=== PATIENT | female | born 1955 | race Caucasian/White ===

== ENCOUNTER → 2016-05-23 | Outpatient (CLI) | payer OTHER ==
--- NOTE | 2016-05-31 10:45 | MM ---
Reason for exam: screening (asymptomatic). Last mammogram was performed 5 years ago. History: Patient is postmenopausal. Physical Findings: A clinical breast exam by your physician is recommended on an annual basis and results should be correlated with mammographic findings. MG Screening Mammo w CAD Bilateral CC and MLO view(s) were taken. Prior study comparison: June 01, 2011, mammogram, performed at [place]. April 05, 2010, mammogram, performed at [place]. The breast tissue is extremely dense which could obscure a lesion on mammography. No significant changes when compared with prior studies. ASSESSMENT: Benign, BI-RAD 2 RECOMMENDATION: Routine screening mammogram of both breasts in 1 year.
== END ==
LOC: RADMAMWWP 13:15
PROVIDERS: ATTEND Family Medicine
DX: Z12.31 Encounter for screening mammogram for malignant neoplasm of breast (principal)

== ENCOUNTER → 2018-07-25 | Outpatient (CLI) | payer BC ==
--- NOTE | 2018-07-26 11:59 | MM ---
Reason for exam: screening (asymptomatic). Last mammogram was performed 2 years and 2 months ago. History: Patient is postmenopausal. Physical Findings: A clinical breast exam by your physician is recommended on an annual basis and results should be correlated with mammographic findings. MG Screening Mammo w CAD Bilateral CC and MLO view(s) were taken. Prior study comparison: May 23, 2016, bilateral MG screening mammo w CAD. June 01, 2011, mammogram, performed at [facility]. The breast tissue is extremely dense which could obscure a lesion on mammography. There is no discrete abnormality. No significant changes when compared with prior studies. ASSESSMENT: Negative, BI-RAD 1 RECOMMENDATION: Routine screening mammogram of both breasts in 1 year.
== END ==
LOC: RADMAMWWP 14:17
PROVIDERS: ATTEND Family Medicine
DX: Z12.31 Encounter for screening mammogram for malignant neoplasm of breast (principal)
CPT/HCPCS: 77067

== ENCOUNTER → 2021-06-07 | Outpatient (CLI) | payer MEDICAID ==
--- NOTE | 2021-06-09 13:20 | MM ---
Reason for exam: screening (asymptomatic). Last mammogram was performed 2 years and 10 months ago. History: Patient is postmenopausal. Physical Findings: A clinical breast exam by your physician is recommended on an annual basis and results should be correlated with mammographic findings. MG Screening Mammo w CAD Bilateral CC and MLO view(s) were taken. Prior study comparison: July 25, 2018, bilateral MG screening mammo w CAD. May 23, 2016, bilateral MG screening mammo w CAD. The breast tissue is extremely dense which could obscure a lesion on mammography. No significant changes when compared with prior studies. ASSESSMENT: Benign, BI-RAD 2 RECOMMENDATION: Routine screening mammogram of both breasts in 1 year.
== END | disposition home or self-care (01) ==
LOC: RADMAMWWP 13:06
PROVIDERS: ATTEND Family Medicine
DX: Z12.31 Encounter for screening mammogram for malignant neoplasm of breast (principal); Z78.0 Asymptomatic menopausal state
CPT/HCPCS: 77067

== ENCOUNTER → 2022-06-08 | Outpatient (CLI) | payer OTHER ==
--- NOTE | 2022-06-08 14:20 | BD ---
EXAMINATION TYPE: Axial Bone Density DATE OF EXAM: 06/08/2022 CLINICAL HISTORY: 66 years old Female. ICD-10 CODE: Z78.0 POST MENOPAUSAL WITHOUT HRT Height: 65 Weight: 122 FRAX RISK QUESTIONS: Family History (Parent hip fracture): yes, but not aware of any fxs Current Tobacco Use: yes RISK FACTORS HISTORY OF: Family History of Osteoporosis: yes, grandmother with symptoms Postmenopausal woman: yes, at age 50 yrs old Hyperparathyroidism: no Adrenal Insufficiency: no MEDICATIONS: Additional Medications: bp meds, statin for cholesterol, Lexapro, vit d, Additional History: hypertension, cholesterol, anxiety EXAM MEASUREMENTS: Bone mineral densitometry was performed using the [employer]. Bone mineral density as measured about the Lumbar spine is: ----- L1-L4(G/cm2): 1.080 T Score Values are as follows: ----- L1: -0.4 ----- L2: -0.4 ----- L3: -0.5 ----- L4: -1.8 ----- L1-L4: -0.8 Z Score Values are as follows: ----- L1: 1.4 ----- L2: 1.4 ----- L3: 1.3 ----- L4: 0.1 ----- L1-L4: 1.1 Bone mineral density first bone density....baseline Bone mineral density about the R hip (g/cm2): 0.762 Bone mineral density about the L hip (g/cm2): 0.760 T Score values are as follows: -----R Neck: -2.2 -----L Neck: -2.4 -----R Total: -1.9 -----L Total: -2.0 Z Score values are as follows: -----R Neck: -0.6 -----L Neck: -0.7 -----R Total: -0.5 -----L Total: -0.6 Bone mineral density baseline study FRAX%s: The graph provided illustrates a 12.6% chance for a major osteoporotic fx and a 4.0% chance f or the hips probability for fx in 10 years time. IMPRESSION: Osteopenia (T Score between -2.5 and -1). There is slightly increased risk of fracture and the patient may be considered for treatment. Re-Screen 2-5 years. NOTE: T-SCORE=SD OF THE YOUNG ADULT MEAN.
--- NOTE | 2022-06-09 07:50 | MM ---
Reason for Exam: Screening (asymptomatic). Last screening mammogram was performed 12 month(s) ago. Patient History: Menarche at age 17. First Full-Term at age 24. Postmenopausal. Risk Values: Amy 5 year model risk: 1.3%. NCI Lifetime model risk: 5.3%. Prior Study Comparison: 05/23/2016 Bilateral Screening Mammogram, [facility]. 07/25/2018 Bilateral Screening Mammogram, [facility]. 06/07/2021 Bilateral Screening Mammogram, [facility]. Tissue Density: The breast tissue is extremely dense which could obscure a lesion on mammography. Findings: Analyzed By CAD. There is no suspicious group of microcalcifications or new suspicious mass in either breast. Overall Assessment: Negative, BI-RAD 1 Management: Screening Mammogram of both breasts in 1 year. A clinical breast exam by your physician is recommended on an annual basis and results should be correlated with mammographic findings. Electronically signed and approved by: Yan Hartman M.D. Radiologis
== END | disposition home or self-care (01) ==
LOC: RADMAMWWP 10:42
PROVIDERS: ATTEND Family Medicine
DX: Z12.31 Encounter for screening mammogram for malignant neoplasm of breast (principal); M85.89 Other specified disorders of bone density and structure, multiple sites; F41.9 Anxiety disorder, unspecified; I10 Essential (primary) hypertension; E78.00 Pure hypercholesterolemia, unspecified; Z78.0 Asymptomatic menopausal state
CPT/HCPCS: 77063; 77067; 77080

== ENCOUNTER → 2022-07-17 | Outpatient (CLI) | payer OTHER ==
--- NOTE | 2022-07-17 10:01 | US ---
EXAMINATION TYPE: US abdomen limited DATE OF EXAM: 07/17/2022 COMPARISON: NONE CLINICAL INDICATION: Female, 66 years old with history of R74.8 ABN SERUM ENZYME LEVELS; Abnormal lab s. TECHNIQUE: Multiple sonographic images of the right upper quadrant are obtained. FINDINGS: EXAM MEASUREMENTS: Liver Length: 11.7 cm Gallbladder Wall: 0.2 cm CBD: 0.4 cm Right Kidney: 8.3 x 4.2 x 3.6 cm Pancreas: wnl Liver: wnl Gallbladder: No stones or sludge seen Evidence for sonographic Nice's sign: neg CBD: wnl Right Kidney: No hydronephrosis or masses seen IMPRESSION: Unremarkable study.
== END | disposition home or self-care (01) ==
LOC: RADUSWWP 09:00
PROVIDERS: ATTEND Family Medicine
DX: R74.8 Abnormal levels of other serum enzymes (principal)
CPT/HCPCS: 76705

== ENCOUNTER → 2023-10-01 | Outpatient (CLI) | payer MEDICARE ==
--- NOTE | 2023-10-01 22:08 | CTL ---
EXAMINATION TYPE: CT Low Dose Lung DATE OF EXAM ORDERED: 10/01/2023 HISTORY: 68-year-old female, smoker with 20 pack-year history. Lung cancer screening. Z12.2 LUNG CA SCREEN F17.[address] DLP: 54.[address] CTDI: 1.5 mGy Automated exposure control for dose reduction was used. SCREENING VISIT: Baseline COMPARISON: None TECHNIQUE: Low dose computed tomography scan was performed through the chest at 1 mm thick sections a nd reconstructed images in multiple planes at 1 mm and [address] DIAGNOSTIC QUALITY: Satisfactory FINDINGS: The heart is normal size without pericardial effusion. There is normal caliber with conventional arch vessel branching anatomy. No thoracic lymphadenopathy by CT size criteria. Mild upper lung emphysematous change. Mild biapical pleural-parenchymal scarring. No consolidation or pleural effusion. 4 mm inferior lingular pulmonary nodule, axial image 243. Adjacent 6 mm inferior lingular pulmonary nodule, axial image 236 Visualized upper abdomen shows no gross abnormality. Bones: Superior endplate Schmorl's node in T5. No osseous destructive process. IMPRESSION: 1. Lung RADS 3, probably benign. A couple pulmonary nodules in the inferior lingula measuring up to 6 mm on baseline screening. 2. COPD with mild emphysema. Recommend smoking cessation. CT LUNG RAD AND CT CHEST RECOMMENDATION: Lung-Rad 3 Probably Benign: 6 month follow-up LDCT. S Modifier (other clinically significant findings): None
== END | disposition home or self-care (01) ==
LOC: RADCTMAIN 17:43
PROVIDERS: ATTEND Family Medicine
DX: Z12.2 Encounter for screening for malignant neoplasm of respiratory organs (principal); J44.9 Chronic obstructive pulmonary disease, unspecified; J43.9 Emphysema, unspecified; F17.210 Nicotine dependence, cigarettes, uncomplicated
CPT/HCPCS: 71271